=== PATIENT | male | born 1950 ===

== ENCOUNTER 2021-02-15 16:56 | Emergency (ER) | payer SELFPAY ==
[~2021-02-15] VITALS: Ht 167.6 cm; Wt 69.9 kg
[2021-02-15] MEDS ORDERED: CLINDAMYCIN 600 MG/4 ML VL IM ONE (19:15)
[2021-02-15] MEDS ORDERED: cefTRIAXone SOD 500 MG VL IM ONE (19:15)
[2021-02-15] MEDS ORDERED: cefTRIAXone 1GM/50ML D5W 50 ML IV ONE (19:45)
[2021-02-15] MEDS ORDERED: SODIUM CHLORIDE 0.9% 1,000 ML IV ONE (19:45)
[2021-02-15] MEDS ORDERED: CLINDAMYCIN 600MG IV 50 ML IV ONE (19:45)
[2021-02-15 20:15] LABS: Basophils # (auto) 0 10 ^3/uL (0-0.2); Basophils % (auto) 0.4 % (0.0-2.0); Eosinophils # (auto) 0.1 10 ^3/uL (0-0.8); Eosinophils % (auto) 0.7 % (0.0-7.0); Hematocrit 46.2 % (41.0-53.0); Hemoglobin 15.8 g/dL (13.5-17.5); Lymphocytes % (auto) 12.4 % (10.0-50.0); Mean Corpuscular Hemoglobin 31.3 pg (28.0-32.0); Mean Corpuscular Hgb Conc. 34.2 g/dL (32.0-36.0); Mean Corpuscular Volume 91.3 fL (80.0-100.0); Monocytes # (auto) 0.7 10 ^3/uL (0-1.3); Monocytes % (auto) 8.1 % (0.0-12.0); Neutrophils # (auto) 6.4 10 ^3/uL (1.6-8.6); Neutrophils % (auto) 78.4 % (37.0-80.0); Nucleated Red Blood Cells % 0.1 %; Red Blood Cells 5.05 10^6/uL (4.5-5.90); Red Cell Distribution Width 13.6 % (11.8-14.3); White Blood Cell 8.2 10^3/uL (4.4-10.8)
[2021-02-15 20:39] LABS: Albumin 3.8 g/dL (3.4-5.0); Potassium 4.1 mmol/L (3.5-5.1)
[2021-02-15 20:45] VITALS: BP 130/72
[2021-02-15 20:45] LABS: BUN/Creatinine Ratio 15.2; Bilirubin, Total 0.9 mg/dL (0.2-1.0); Total Protein 7.7 g/dL (6.4-8.2)
== END 2021-02-15 22:33 | disposition home or self-care (01) ==
LOC: EDSEX 16:56 → ER 16:56
DX: S91.052D Open bite, left ankle, subsequent encounter (principal); L03.116 Cellulitis of left lower limb; W54.0XXD Bitten by dog, subsequent encounter
CPT/HCPCS: 36415; 73700; 80053; 85025; 96365; 96368; 99284; J0696; J3490